=== PATIENT | male | born 1980 | race Caucasian/White ===

== ENCOUNTER 2017-06-26 20:42 | Emergency (ER) | payer OTHER ==
[~2017-06-26] VITALS: Ht 177.8 cm; Wt 81.8 kg
[2017-06-26] MEDS ORDERED: IBUP-1114 PO (20:47)
[2017-06-26 21:19] VITALS: BP 135/85
== END 2017-06-26 21:40 | disposition home or self-care (01) ==
LOC: M ED 20:42
DX: M54.16 Radiculopathy, lumbar region (principal); G89.29 Other chronic pain; M51.9 Unspecified thoracic, thoracolumbar and lumbosacral intervertebral disc disorder